=== PATIENT | female | born 1995 | race Caucasian/White ===

== ENCOUNTER 2017-04-04 07:55 | Outpatient (CLI) | payer OTHER ==
--- NOTE | 2017-04-04 16:14 | NM ---
NUCLEAR MEDICINE HEPATOBILIARY SCAN: 04/04/17 HISTORY: 22-year-old female with right upper quadrant abdominal pain. TECHNIQUE: [id number]-eohqojctmy dose: 5.4 mCi Kinevac (CCK analog) dose: 1.6 mcg [id number]-[id number] injected IV. Dynamic anterior scintigraphy of abdomen for 1 hour. Kinevac injected. Additional dynamic anterior scintigraphy of abdomen. Counts obtained over gallbladder. Time-activi ty curve generated. FINDINGS: There is normal uptake and washout of radiopharmaceutical agent from the liver. The gallbladder felipa ls normally. Bowel activity is visualized at an appropriate time. The gallbladder ejection fractio n is normal: 90%. IMPRESSION: Normal. carol [] POS: SONA
== END 2017-04-04 07:56 | disposition home or self-care (01) ==
LOC: NM 07:55
PROVIDERS: ATTEND Internal Medicine Gastroenterology
DX: K21.9 Gastro-esophageal reflux disease without esophagitis (principal); R10.11 Right upper quadrant pain; R10.2 Pelvic and perineal pain
CPT/HCPCS: 78227; A9537

== ENCOUNTER 2017-06-17 13:32 | Outpatient (CLI) | payer OTHER | END 2017-06-17 13:33 | disposition home or self-care (01) | LOC: BICRAD 13:32 | PROVIDERS: ATTEND Internal Medicine | DX: M79.671 Pain in right foot (principal) ==